=== PATIENT | male | born 1950 | race Hispanic/Latino ===

== ENCOUNTER 2019-12-24 06:30 | Day surgery (SDC) | payer OTHER ==
[2019-12-19 16:28] LABS: BASOPHILS % (AUTO) 0.4 % (0.0-5.0); EOSINOPHILS % (AUTO) 1.4 % (0.0-8.0); LYMPHOCYTES % (AUTO) 27.5 % (21.0-51.0); MEAN CORPUSCULAR HEMOGLOBIN 28.7 pg (27.0-33.0); MEAN CORPUSCULAR HGB CONC 33.1 g/dL (32.0-36.0); MEAN CORPUSCULAR VOLUME 86.7 fL (79-99); MONOCYTES % (AUTO) 10.8 % (3.0-13.0); NEUTROPHILS % (AUTO) 59.3 % (40.0-77.0); PLATELET COUNT (AUTO) 263 K/uL (130-400); RED CELL DISTRIBUTION WIDTH 13.2 % (11.0-15.5); WHITE BLOOD COUNT (AUTO) 10.4 K/uL (4.8-10.8)
[2019-12-19 16:38] LABS: CREATININE 1.5 mg/dL (0.5-1.5); POTASSIUM 4.1 mmol/L (3.5-5.1)
[2019-12-23 11:56] VITALS: BP 138/103
[2019-12-24] VITALS (14 sets, daily range): BP systolic 111–145; BP diastolic 54–79
[~2019-12-24] VITALS: Ht 175.3 cm; Wt 118.8 kg
[~2019-12-24 06:30] MED LIST: APIX5TAB PO; DRON400T2 PO; FOLI1TAB85 PO; LEVO75TA10 PO; LOVA20TA3 PO; METF750T46 PO; METO25TA6 PO; PANT40GR PO
[2019-12-24] MEDS ORDERED: SODIUM CHLORIDE 0.9% 1000ML 1,000 ML IV ONE (07:20)
[2019-12-24] MEDS ORDERED: LIDOCAINE PF 2% 5ML ABBOJECT ONE (10:12)
[2019-12-24] MEDS ORDERED: PROPOFOL 10 MG/ML 20ML VIAL IV ONE (10:12)
== END 2019-12-24 11:35 | disposition home or self-care (01) ==
LOC: DAH 06:30
PROVIDERS: ATTEND Internal Medicine Cardiovascular Disease
DX: I48.19 Other persistent atrial fibrillation (principal); E78.5 Hyperlipidemia, unspecified; E11.22 Type 2 diabetes mellitus with diabetic chronic kidney disease; I12.9 Hypertensive chronic kidney disease with stage 1 through stage 4 chronic kidney disease, or unspecified chronic kidney disease; N18.30 Chronic kidney disease, stage 3 unspecified; G47.30 Sleep apnea, unspecified; Z79.84 Long term (current) use of oral hypoglycemic drugs; Z79.01 Long term (current) use of anticoagulants; Z79.899 Other long term (current) drug therapy; Z20.828 Contact with and (suspected) exposure to other viral communicable diseases
CPT/HCPCS: 36415; 80048; 82948; 85025; 92960; 93005 ×2; A4215; A4216; A4221; A4222; A4223 ×3; A4606; A4663; C9803; J2001; J2704; J7030; U0003

== ENCOUNTER 2020-02-23 10:57 | Emergency (ER) | payer OTHER ==
[2020-02-23 11:55] LABS: APPEARANCE,URINE Clear (CLEAR); BILIRUBIN,URINE Negative (NEGATIVE); COLOR,URINE Yellow (YELLOW); GLUCOSE, URINE (UA) Negative (NEGATIVE); KETONES,URINE Trace mg/dL (NEGATIVE); LEUKOCYTE ESTERASE ,URINE Small (NEGATIVE); NITRATE,URINE Negative (NEGATIVE); OCCULT BLOOD,URINE Negative (NEGATIVE); PROTEIN,URINE Trace mg/dL (NEGATIVE)
[2020-02-23 12:14] LABS: BACTERIA,URINE Rare /HPF (None Seen); RBC,URINE 0-1 /HPF (0-1); SQUAMOUS EPITHELIAL CELL,UR Rare /HPF (0-2); WBC,URINE 0-1 /HPF (0-1)
[2020-02-23 12:17] LABS: BASOPHILS % (AUTO) 0.4 % (0.0-5.0); EOSINOPHILS % (AUTO) 1.7 % (0.0-8.0); LYMPHOCYTES % (AUTO) 28.7 % (21.0-51.0); MEAN CORPUSCULAR HEMOGLOBIN 29.1 pg (27.0-33.0); MEAN CORPUSCULAR HGB CONC 33.9 g/dL (32.0-36.0); MEAN CORPUSCULAR VOLUME 85.8 fL (79-99); MONOCYTES % (AUTO) 9.4 % (3.0-13.0); NEUTROPHILS % (AUTO) 59.4 % (40.0-77.0); PLATELET COUNT (AUTO) 221 K/uL (130-400); RED BLOOD CELL COUNT(AUTO) 4.78 MIL/uL (4.50-6.20); RED CELL DISTRIBUTION WIDTH 13.2 % (11.0-15.5); WHITE BLOOD COUNT (AUTO) 9.7 K/uL (4.8-10.8)
[2020-02-23 12:23] LABS: CREATININE 1.3 mg/dL (0.5-1.5); POTASSIUM 4.4 mmol/L (3.5-5.1)
[2020-02-23 12:27] LABS: ALBUMIN 3.8 g/dL (3.5-5.0); BILIRUBIN,TOTAL 0.4 mg/dL (0.2-1.0); TOTAL PROTEIN, SERUM 7.2 g/dL (6.0-8.3)
[2020-02-23] MEDS ORDERED: IOHEXOL-350 75 ML VIAL IV ONE (12:46)
== END 2020-02-23 15:41 | disposition home or self-care (01) ==
LOC: EDH 10:57
DX: R35.0 Frequency of micturition (principal); R39.15 Urgency of urination; K21.9 Gastro-esophageal reflux disease without esophagitis; E11.9 Type 2 diabetes mellitus without complications; E03.9 Hypothyroidism, unspecified
CPT/HCPCS: 36415; 74177; 80053; 81001; 85025; 99285; Q9967

== ENCOUNTER 2020-02-28 11:06 | Observation (INO) | payer OTHER ==
[~2020-02-28] VITALS: Ht 175.3 cm; Wt 116.8 kg
[2020-02-28] VITALS (21 sets, daily range): BP systolic 122–170; BP diastolic 56–89
[~2020-02-28 11:06] MED LIST changes: -DRON400T2 PO; +DRON400T7 PO
[2020-02-28 13:18] LABS: BASOPHILS % (AUTO) 0.3 % (0.0-5.0); EOSINOPHILS % (AUTO) 0.3 % (0.0-8.0); LYMPHOCYTES % (AUTO) 23.6 % (21.0-51.0); MEAN CORPUSCULAR HEMOGLOBIN 28.5 pg (27.0-33.0); MEAN CORPUSCULAR HGB CONC 33.8 g/dL (32.0-36.0); MEAN CORPUSCULAR VOLUME 84.2 fL (79-99); MONOCYTES % (AUTO) 10.3 % (3.0-13.0); NEUTROPHILS % (AUTO) 65.1 % (40.0-77.0); PLATELET COUNT (AUTO) 226 K/uL (130-400); RED BLOOD CELL COUNT(AUTO) 4.63 MIL/uL (4.50-6.20); RED CELL DISTRIBUTION WIDTH 13.2 % (11.0-15.5); WHITE BLOOD COUNT (AUTO) 10.8 K/uL (4.8-10.8)
[2020-02-28 13:45] LABS: CREATININE 1.2 mg/dL (0.5-1.5); POTASSIUM 3.8 mmol/L (3.5-5.1)
[2020-02-28] MEDS: CEFAZOLIN SODIUM 1 GM VIAL IVP SCH (15:15)
[2020-02-28] MEDS ORDERED: MEPERIDINE HCL/PF 25 MG/0.5 ML AMPUL IVP ONE (15:15)
[2020-02-28] MEDS ORDERED: ACETAMINOPHEN 325 MG TAB PO PRN (15:15)
[2020-02-28] MEDS ORDERED: GLUCAGON 1MG KIT 1 MG ML IM PRN (15:15)
[2020-02-28] MEDS ORDERED: DEXTROSE 50%-WATER 50 ML DISP.SYRIN IV PRN (15:15)
[2020-02-28] MEDS ORDERED: HYDRALAZINE 20MG/ML VIAL IV PRN (15:15)
[2020-02-28] MEDS ORDERED: ONDANSETRON 4MG INJ IVP PRN (15:15)
[2020-02-28] MEDS ORDERED: MAGNESIUM 2GM PREMIX 50ML 50 ML IV PRN (15:15)
[2020-02-28] MEDS ORDERED: LOPERAMIDE HCL 2 MG CAP PO PRN (15:15)
[2020-02-28] MEDS ORDERED: IOHEXOL 350 MG/ML 100ML INFUS..BTL IV ONE (15:51)
[2020-02-28] MEDS: INSULIN HUMULIN R 100 UNIT/ML 3ML SQ SCH ×2 (16:30→21:00)
[2020-02-28] MEDS ORDERED: LIDOCAINE PF 100MG/5ML (2%) SYRINGE 5ML ONE (17:51)
[2020-02-28] MEDS ORDERED: PROPOFOL 10 MG/ML 20ML VIAL IV ONE ×2 (17:52→18:36)
[2020-02-28] MEDS ORDERED: ROCURONIUM 10MG/1ML SYR 10 MG/ML ML ONE (17:52)
[2020-02-28] MEDS ORDERED: FENTANYL CITRATE PF 50 MCG/1 ML 2ML VIAL ONE ×2 (17:52→18:36)
[2020-02-28] MEDS ORDERED: IOHEXOL-350 50ML VIAL IV ONE (18:24)
[2020-02-28] MEDS ORDERED: NEOSTIGMINE 5MG/5ML SYR IV ONE (19:36)
[2020-02-28] MEDS ORDERED: ONDANSETRON 4MG INJ ONE (19:36)
[2020-02-28] MEDS ORDERED: GLYCOPYRROLATE 1 MG/5 ML SYRINGE ONE (19:36)
[2020-02-28] MEDS ORDERED: MEPERIDINE-PF 25 MG/ML SYG ONE (20:08)
[2020-02-28] MEDS ORDERED: ATORVASTATIN 10 MG TABLET PO SCH (21:00)
[2020-02-28] MEDS: HEPARIN 5,000 UNIT VIAL SQ SCH (21:00)
[2020-02-28] MEDS: DRONEDARONE HYDROCHLORIDE 400 MG TABLET PO SCH (21:00)
[2020-02-28] MEDS ORDERED: APIXABAN 5 MG TABLET PO SCH ×2 (21:00)
[2020-02-28] MEDS: METOPROLOL TARTRATE 25 MG TAB PO SCH (21:00)
[2020-02-29] VITALS (7 sets, daily range): BP systolic 128–146; BP diastolic 60–73
[2020-02-29] MEDS: 0.9%NACL 1000ML 1,000 ML IV SCH ×3 (00:24→17:24)
[2020-02-29] MEDS: HYDROMORPHONE 0.5 MG SYG (0.5MG/0.5ML) IVP PRN ×2 (00:24→05:52)
[2020-02-29] MEDS: INSULIN HUMULIN R 100 UNIT/ML 3ML SQ SCH ×3 (05:39→16:30)
[2020-02-29 05:49] LABS: BASOPHILS % (AUTO) 0.3 % (0.0-5.0); EOSINOPHILS % (AUTO) 0.4 % (0.0-8.0); LYMPHOCYTES % (AUTO) 16.7 % (21.0-51.0); MEAN CORPUSCULAR VOLUME 85.4 fL (79-99); MONOCYTES % (AUTO) 13.2 % (3.0-13.0); NEUTROPHILS % (AUTO) 69.1 % (40.0-77.0); PLATELET COUNT (AUTO) 184 K/uL (130-400); RED CELL DISTRIBUTION WIDTH 13.4 % (11.0-15.5)
[2020-02-29 06:12] LABS: CREATININE 1.2 mg/dL (0.5-1.5); POTASSIUM 4.2 mmol/L (3.5-5.1)
[2020-02-29] MEDS ORDERED: LEVOTHYROXINE 75 MCG TABLET PO SCH (06:30)
[2020-02-29] MEDS: HEPARIN 5,000 UNIT VIAL SQ SCH (08:54)
[2020-02-29] MEDS: DRONEDARONE HYDROCHLORIDE 400 MG TABLET PO SCH (09:00)
[2020-02-29] MEDS ORDERED: TAMSULOSIN HCL 0.4 MG CAP.ER.24H PO SCH (09:00)
[2020-02-29] MEDS ORDERED: Vitamin B Complex/Vit C/Folic Acid PO SCH (09:00)
[2020-02-29] MEDS ORDERED: PANTOPRAZOLE 40 MG TAB DR PO SCH (09:00)
[2020-02-29] MEDS: METOPROLOL TARTRATE 25 MG TAB PO SCH (09:05)
[2020-02-29] MEDS: CEFAZOLIN SODIUM 1 GM VIAL IVP SCH (09:05)
[2020-05-06] MEDS ORDERED: OXYB5TAB15 PO (09:47)
[2020-05-06] MEDS ORDERED: PANT40TA54 PO (09:47)
[2020-07-08] MEDS ORDERED: BACL20TA PO (13:38)
== END 2020-02-29 17:15 | disposition home or self-care (01) ==
LOC: EDH 11:06 → EDHIP 13:29 → 3BH 16:43
PROVIDERS: ADMIT Internal Medicine; ATTEND Internal Medicine
DX: N35.819 Other urethral stricture, male, unspecified site (principal); R33.8 Other retention of urine; N13.9 Obstructive and reflux uropathy, unspecified; I48.91 Unspecified atrial fibrillation; E66.2 Morbid (severe) obesity with alveolar hypoventilation; I25.10 Atherosclerotic heart disease of native coronary artery without angina pectoris; E11.9 Type 2 diabetes mellitus without complications; K21.9 Gastro-esophageal reflux disease without esophagitis; E78.5 Hyperlipidemia, unspecified; E03.9 Hypothyroidism, unspecified; M48.00 Spinal stenosis, site unspecified; Z85.46 Personal history of malignant neoplasm of prostate; Z90.49 Acquired absence of other specified parts of digestive tract; Z95.1 Presence of aortocoronary bypass graft; Z90.79 Acquired absence of other genital organ(s); Z79.01 Long term (current) use of anticoagulants; Z79.899 Other long term (current) drug therapy; Z68.41 Body mass index [BMI] 40.0-44.9, adult
CPT/HCPCS: 36415 ×2; 52281; 74178; 74450; 80048 ×2; 82948 ×3; 83605; 85025 ×2; 96361; 96374; 96375; 96376; 99285; A4222; A4223; A4354; A4358; A4600; A4649; A4930; A5113; C1726 ×4; C1751; C1758 ×3; C1769 ×3; G0378 ×28; J0690; J1170 ×2; J2001; J2175 ×2; J2405; J2704 ×2; J2710; J3010 ×2; J3490; J7030; Q9958; Q9967

== ENCOUNTER 2020-04-08 09:31 | Emergency (ER) | payer MEDICARE, OTHER ==
[~2020-04-08 09:31] MED LIST changes: +DRON400T2 PO; -DRON400T7 PO
[2020-04-08 09:51] LABS: BASOPHILS % (AUTO) 0.4 % (0.0-5.0); EOSINOPHILS % (AUTO) 1.4 % (0.0-8.0); HEMATOCRIT 42.9 % (42-54); LYMPHOCYTES % (AUTO) 29.5 % (21.0-51.0); MEAN CORPUSCULAR HEMOGLOBIN 28.9 pg (27.0-33.0); NEUTROPHILS % (AUTO) 61.4 % (40.0-77.0); PLATELET COUNT (AUTO) 220 K/uL (130-400); RED BLOOD CELL COUNT(AUTO) 5.05 MIL/uL (4.50-6.20); RED CELL DISTRIBUTION WIDTH 13.3 % (11.0-15.5); WHITE BLOOD COUNT (AUTO) 10.1 K/uL (4.8-10.8)
[2020-04-08 10:00] LABS: CREATININE 1.3 mg/dL (0.5-1.5); POTASSIUM 4.1 mmol/L (3.5-5.1)
[2020-04-08 10:04] LABS: ALBUMIN 4.2 g/dL (3.5-5.0); BILIRUBIN,TOTAL 0.7 mg/dL (0.2-1.0); TOTAL PROTEIN, SERUM 7.7 g/dL (6.0-8.3)
[2020-04-08 10:41] LABS: APPEARANCE,URINE CLEAR (CLEAR); BILIRUBIN,URINE NEGATIVE (NEGATIVE); COLOR,URINE ORANGE (YELLOW); GLUCOSE, URINE (UA) 100 mg/dL (NEGATIVE); KETONES,URINE NEGATIVE (NEGATIVE); LEUKOCYTE ESTERASE ,URINE TRACE (NEGATIVE); NITRATE,URINE POSITIVE (NEGATIVE); OCCULT BLOOD,URINE NEGATIVE (NEGATIVE); PROTEIN,URINE TRACE mg/dL (NEGATIVE)
[2020-04-08 10:52] LABS: BACTERIA,URINE Rare /HPF (None Seen); RBC,URINE 0-1 /HPF (0-1); SQUAMOUS EPITHELIAL CELL,UR 0-2 /HPF (0-2)
[2020-04-08] MEDS ORDERED: LEVOFLOXACIN 500 MG TABLET PO ONE (13:00)
[2020-04-08] MEDS ORDERED: LEVOFLOXACIN 500 MG TABLET ONE (13:00)
== END 2020-04-08 14:28 | disposition home or self-care (01) ==
LOC: EDH 09:31
DX: N39.0 Urinary tract infection, site not specified (principal); K21.9 Gastro-esophageal reflux disease without esophagitis; E11.9 Type 2 diabetes mellitus without complications; E03.9 Hypothyroidism, unspecified
CPT/HCPCS: 36415; 74176; 80053; 81001; 85025; 87088

== ENCOUNTER 2020-04-09 21:03 | Emergency (ER) | payer MEDICARE ==
[2020-04-09 22:46] LABS: APPEARANCE,URINE Clear (CLEAR); BILIRUBIN,URINE Small (NEGATIVE); COLOR,URINE Dark Yellow (YELLOW); GLUCOSE, URINE (UA) Negative (NEGATIVE); KETONES,URINE Negative (NEGATIVE); LEUKOCYTE ESTERASE ,URINE Small (NEGATIVE); NITRATE,URINE Positive (NEGATIVE); OCCULT BLOOD,URINE Large (NEGATIVE); PH,URINE 6.5 (5.0-8.0); PROTEIN,URINE Trace mg/dL (NEGATIVE)
[2020-04-09 23:05] LABS: BACTERIA,URINE Few /HPF (None Seen)
[2020-04-09] MEDS ORDERED: PHENAZOPYRIDINE HCL 200 MG TABLET ONE (23:17)
== END 2020-04-09 23:36 | disposition home or self-care (01) ==
LOC: EDH 21:03
DX: R33.9 Retention of urine, unspecified (principal); N30.90 Cystitis, unspecified without hematuria; K21.9 Gastro-esophageal reflux disease without esophagitis; E11.9 Type 2 diabetes mellitus without complications; E03.9 Hypothyroidism, unspecified
CPT/HCPCS: 51702; 81001; 87088; 96365

== ENCOUNTER 2020-04-23 19:37 | Observation (INO) | payer MEDICARE ==
[~2020-04-23] VITALS: Ht 175.3 cm; Wt 111.3 kg
[~2020-04-23 19:37] MED LIST changes: -DRON400T2 PO; +DRON400T7 PO
[2020-04-23] MEDS ORDERED: ONDANSETRON 4MG INJ ONE (20:31)
[2020-04-23] MEDS ORDERED: MORPHINE 2 MG SYG ONE (20:32)
[2020-04-23 20:36] LABS: BASOPHILS % (AUTO) 0.3 % (0.0-5.0); EOSINOPHILS % (AUTO) 0.4 % (0.0-8.0); HEMATOCRIT 39.4 % (42-54); LYMPHOCYTES % (AUTO) 21.7 % (21.0-51.0); MEAN CORPUSCULAR HEMOGLOBIN 28.6 pg (27.0-33.0); MEAN CORPUSCULAR HGB CONC 33.5 g/dL (32.0-36.0); MEAN CORPUSCULAR VOLUME 85.5 fL (79-99); MONOCYTES % (AUTO) 8.9 % (3.0-13.0); NEUTROPHILS % (AUTO) 68.4 % (40.0-77.0); PLATELET COUNT (AUTO) 201 K/uL (130-400); RED BLOOD CELL COUNT(AUTO) 4.61 MIL/uL (4.50-6.20); RED CELL DISTRIBUTION WIDTH 13.2 % (11.0-15.5); WHITE BLOOD COUNT (AUTO) 10.9 K/uL (4.8-10.8)
[2020-04-23 20:51] LABS: CREATININE 1.2 mg/dL (0.5-1.5)
[2020-04-23 20:54] LABS: ALBUMIN 3.9 g/dL (3.5-5.0); BILIRUBIN,TOTAL 0.7 mg/dL (0.2-1.0); TOTAL PROTEIN, SERUM 7.3 g/dL (6.0-8.3)
[2020-04-23 20:59] LABS: INR 1.03 (0.85-1.15); PROTHROMBIN TIME 11.2 SEC (9.6-11.6)
[2020-04-23 21:01] LABS: PARTIAL THROMBOPLASTIN TIME 28.8 SEC (26.3-35.5)
[2020-04-23] MEDS ORDERED: ONDANSETRON 4MG INJ IVP PRN (21:15)
[2020-04-23] MEDS ORDERED: ACETAMINOPHEN 650 MG SUPPOSITORY RC PRN (21:15)
[2020-04-23] MEDS ORDERED: CLONIDINE HCL 0.1 MG TABLET PO PRN (21:15)
[2020-04-23] MEDS ORDERED: TEMAZEPAM 15 MG CAPSULE PO PRN (21:15)
[2020-04-23] MEDS ORDERED: LABETALOL 20MG SYG IV PRN (21:15)
[2020-04-23] MEDS ORDERED: HYDROMORPHONE 0.5 MG SYG (0.5MG/0.5ML) ONE (22:00)
[2020-04-24] VITALS (28 sets, daily range): BP systolic 117–155; BP diastolic 51–82
[2020-04-24] MEDS: MORPHINE 4 MG SYG IVP PRN ×5 (01:15→20:42)
[2020-04-24 06:43] LABS: CREATININE 1.3 mg/dL (0.5-1.5); POTASSIUM 4.2 mmol/L (3.5-5.1)
[2020-04-24] MEDS ORDERED: FENTANYL CITRATE PF 50 MCG/1 ML 2ML VIAL ONE (07:14)
[2020-04-24] MEDS ORDERED: PROPOFOL 10 MG/ML 20ML VIAL IV ONE (07:14)
[2020-04-24] MEDS ORDERED: LIDOCAINE HCL MPF 1% 5ML VIAL ONE (07:14)
[2020-04-24] MEDS ORDERED: MIDAZOLAM HCL 1 MG/ML 2ML VIAL ONE (07:14)
[2020-04-24] MEDS ORDERED: SUCCINYLCHOLINE 200MG/10ML SYR ONE (07:14)
[2020-04-24] MEDS: CEFTRIAXONE 1G VIAL IVP SCH (07:19)
[2020-04-24] MEDS ORDERED: GLYCOPYRROLATE 1 MG/5 ML SYRINGE ONE (08:33)
[2020-04-24] MEDS ORDERED: NEOSTIGMINE 5MG/5ML SYR IV ONE (08:33)
[2020-04-24] MEDS ORDERED: MEPERIDINE-PF 25 MG/ML SYG ONE (09:13)
[2020-04-25] VITALS: BP 137/62
[2020-04-25] MEDS: MORPHINE 4 MG SYG IVP PRN (02:14)
[2020-04-25 04:11] VITALS: BP 121/56
[2020-04-25] MEDS: CEFTRIAXONE 1G VIAL IVP SCH (05:06)
[2020-04-25 05:48] LABS: CREATININE 1.3 mg/dL (0.5-1.5); MAGNESIUM 1.9 mg/dL (1.80-2.40); POTASSIUM 3.9 mmol/L (3.5-5.1)
[2020-04-25 05:52] LABS: MEAN CORPUSCULAR HGB CONC 32.6 g/dL (32.0-36.0); MEAN CORPUSCULAR VOLUME 88.8 fL (79-99); RED BLOOD CELL COUNT(AUTO) 3.83 MIL/uL (4.50-6.20); RED CELL DISTRIBUTION WIDTH 14.2 % (11.0-15.5); WHITE BLOOD COUNT (AUTO) 12.2 K/uL (4.8-10.8)
[2020-04-25 07:00] VITALS: BP 120/58
[2020-04-25] MEDS ORDERED: ATORVASTATIN 10 MG TABLET PO SCH (09:00)
[2020-04-25] MEDS ORDERED: METOPROLOL TARTRATE 25 MG TAB PO SCH (09:00)
[2020-04-25 11:27] LABS: APPEARANCE,URINE Cloudy (CLEAR); BILIRUBIN,URINE Small (NEGATIVE); COLOR,URINE Dark Yellow (YELLOW); GLUCOSE, URINE (UA) Negative (NEGATIVE); KETONES,URINE Trace mg/dL (NEGATIVE); LEUKOCYTE ESTERASE ,URINE Moderate (NEGATIVE); NITRATE,URINE Positive (NEGATIVE); OCCULT BLOOD,URINE Large (NEGATIVE); PH,URINE 5.5 (5.0-8.0); PROTEIN,URINE POS 1+ mg/dL (NEGATIVE)
[2020-04-25 11:30] VITALS: BP 147/69
[2020-04-25 11:35] LABS: BACTERIA,URINE Moderate /HPF (None Seen); SQUAMOUS EPITHELIAL CELL,UR 0-2 /HPF (0-2)
[2020-04-25 11:36] LABS: RBC,URINE >100 /HPF (0-1); WBC,URINE >100 /HPF (0-1)
[2020-04-25] MEDS ORDERED: LACTULOSE 20 GM/30 ML UDCUP PO SCH (12:30)
[2020-04-25] MEDS ORDERED: BISACODYL 10 MG SUPP.RECT RC SCH (12:30)
[2020-04-25] MEDS ORDERED: PHEN-847 PO (12:35)
[2020-04-25] MEDS ORDERED: LACT10SO9 PO (12:35)
[2020-04-25] MEDS ORDERED: ACET1TAB25 PO (12:35)
[2020-04-25] MEDS ORDERED: PHENAZOPYRIDINE HCL 200 MG TABLET PO SCH (12:45)
[2020-04-25 16:00] VITALS: BP 140/70
[2020-04-25] MEDS ORDERED: DRONEDARONE HYDROCHLORIDE 400 MG TABLET PO SCH (17:00)
[2020-04-26] MEDS ORDERED: LEVOTHYROXINE 75 MCG TABLET PO SCH (07:00)
[2020-05-06] MEDS ORDERED: OXYB5TAB15 PO (09:47)
[2020-05-06] MEDS ORDERED: PANT40TA54 PO (09:47)
[2020-07-08] MEDS ORDERED: BACL20TA PO (13:38)
== END 2020-04-25 17:48 | disposition home or self-care (01) ==
LOC: EDH 19:37 → EDHIP 21:09 → 3CH 23:48 → 3DH 23:59
PROVIDERS: ADMIT Internal Medicine; ATTEND Internal Medicine
DX: N32.0 Bladder-neck obstruction (principal); Z20.822 Contact with and (suspected) exposure to COVID-19; R33.8 Other retention of urine; E11.9 Type 2 diabetes mellitus without complications; I10 Essential (primary) hypertension; E78.5 Hyperlipidemia, unspecified; E03.9 Hypothyroidism, unspecified; E66.9 Obesity, unspecified; K59.00 Constipation, unspecified; N39.0 Urinary tract infection, site not specified; K21.9 Gastro-esophageal reflux disease without esophagitis; Z85.46 Personal history of malignant neoplasm of prostate; Z90.79 Acquired absence of other genital organ(s); Z79.899 Other long term (current) drug therapy; Z68.36 Body mass index [BMI] 36.0-36.9, adult
CPT/HCPCS: 36415 ×3; 52265; 74176; 80048 ×2; 80053; 81001; 82948 ×6; 83735; 84484; 85025; 85027; 85610; 85730; 86850; 86900; 86901; 87040 ×2; 87077; 87088; 87186; 87426; 93005; 96374; 96375; 96376 ×2; 99285; A4315; A4340; A4344; A4354; A4358; A4930; A5113; C1769; G0378 ×43; J0330; J0696 ×2; J1170; J2175; J2250; J2270 ×6; J2405; J2704; J2710; J3010; J3490 ×2; J7030; U0003

== ENCOUNTER 2020-05-07 06:35 | Day surgery (SDC) | payer MEDICARE ==
[2020-05-04 11:05] VITALS: BP 146/68
[2020-05-04 11:54] LABS: BASOPHILS % (AUTO) 0.4 % (0.0-5.0); EOSINOPHILS % (AUTO) 2.1 % (0.0-8.0); HEMATOCRIT 38.3 % (42-54); LYMPHOCYTES % (AUTO) 24.8 % (21.0-51.0); MEAN CORPUSCULAR HEMOGLOBIN 28.3 pg (27.0-33.0); MEAN CORPUSCULAR HGB CONC 32.6 g/dL (32.0-36.0); MEAN CORPUSCULAR VOLUME 86.8 fL (79-99); MONOCYTES % (AUTO) 9.7 % (3.0-13.0); NEUTROPHILS % (AUTO) 62.4 % (40.0-77.0); PLATELET COUNT (AUTO) 276 K/uL (130-400); RED BLOOD CELL COUNT(AUTO) 4.41 MIL/uL (4.50-6.20); RED CELL DISTRIBUTION WIDTH 13.3 % (11.0-15.5); WHITE BLOOD COUNT (AUTO) 7.1 K/uL (4.8-10.8)
[2020-05-04 12:06] LABS: CREATININE 1.1 mg/dL (0.5-1.5); POTASSIUM 4.3 mmol/L (3.5-5.1)
[2020-05-07] VITALS (18 sets, daily range): BP systolic 127–170; BP diastolic 58–85
[~2020-05-07] VITALS: Ht 175.3 cm; Wt 110.9 kg
[2020-05-07] MEDS: MEROPENEM 500 MG VIAL IVP SCH ×2 (06:00→08:30)
[~2020-05-07 06:35] MED LIST changes: +DRON400T2 PO; -DRON400T7 PO; -FOLI1TAB85 PO; +OXYB5TAB15 PO; -PANT40GR PO; +PANT40TA54 PO
[2020-05-07] MEDS ORDERED: SODIUM CHLORIDE 0.9% 1000ML 1,000 ML IV ONE (07:08)
[2020-05-07] MEDS ORDERED: PROPOFOL 10 MG/ML 20ML VIAL IV ONE (07:44)
[2020-05-07] MEDS ORDERED: LIDOCAINE PF 2% 5ML ABBOJECT ONE (07:44)
[2020-05-07] MEDS ORDERED: ONDANSETRON HCL 4 MG/2 ML VIAL ONE (07:44)
[2020-05-07] MEDS ORDERED: SUCCINYLCHOLINE 200MG/10ML SYR ONE ×2 (07:44)
[2020-05-07] MEDS ORDERED: MIDAZOLAM HCL 1 MG/ML 2ML VIAL ONE (07:44)
[2020-05-07] MEDS ORDERED: DEXAMETHASONE SOD PHOSPHATE 10MG/ML 1ML VIAL ONE (07:44)
[2020-05-07] MEDS ORDERED: FENTANYL CITRATE PF 50 MCG/1 ML 2ML VIAL ONE ×3 (07:45→09:44)
[2020-05-07] MEDS ORDERED: MEPERIDINE-PF 25 MG/ML SYG ONE ×4 (07:47→10:27)
[2020-05-07] MEDS ORDERED: ROCURONIUM 10MG/1ML SYR 10 MG/ML ML ONE (08:03)
[2020-05-07] MEDS ORDERED: EPHEDRINE SULFATE 50 MG/ML AMPULE ONE (08:47)
[2020-05-07] MEDS ORDERED: PHENYLEPHRINE HCL 10 MG/ML 1ML VIAL IV ONE (09:16)
[2020-05-07] MEDS ORDERED: PHENAZOPYRIDINE HCL 200 MG TABLET ONE (11:37)
== END 2020-05-07 12:35 | disposition home or self-care (01) ==
LOC: DAH 06:35
PROVIDERS: ATTEND Urology
DX: N32.0 Bladder-neck obstruction (principal); Z20.822 Contact with and (suspected) exposure to COVID-19; C61 Malignant neoplasm of prostate; R33.8 Other retention of urine; I10 Essential (primary) hypertension; I25.10 Atherosclerotic heart disease of native coronary artery without angina pectoris; I48.91 Unspecified atrial fibrillation; K21.9 Gastro-esophageal reflux disease without esophagitis; E66.01 Morbid (severe) obesity due to excess calories; E03.9 Hypothyroidism, unspecified; E11.9 Type 2 diabetes mellitus without complications; Z68.36 Body mass index [BMI] 36.0-36.9, adult; Z90.79 Acquired absence of other genital organ(s); Z98.890 Other specified postprocedural states; Z79.01 Long term (current) use of anticoagulants; Z79.84 Long term (current) use of oral hypoglycemic drugs
CPT/HCPCS: 36415; 52640; 80048; 82948 ×2; 85025; A4215; A4221; A4222; A4223; A4354; A4358; A4510; A4600; A4663; A5113; A6260; C1758; C1769; C9803; J0330 ×2; J1100; J2001; J2175 ×4; J2185 ×2; J2250; J2370; J2405; J2704; J3010 ×3; J3490; J7030 ×2; U0003

== ENCOUNTER 2020-06-27 03:37 | Emergency (ER) | payer MEDICARE ==
[~2020-06-27 03:37] MED LIST changes: -DRON400T2 PO; +DRON400T7 PO
[2020-06-27] MEDS ORDERED: SODIUM CHLORIDE 0.9% 1000ML 1,000 ML IV ONE (04:21)
[2020-06-27 04:43] LABS: BASOPHILS % (AUTO) 0.5 % (0.0-5.0); HEMATOCRIT 40.2 % (42-54); LYMPHOCYTES % (AUTO) 27.8 % (21.0-51.0); MEAN CORPUSCULAR HEMOGLOBIN 29.5 pg (27.0-33.0); MEAN CORPUSCULAR HGB CONC 35.1 g/dL (32.0-36.0); MEAN CORPUSCULAR VOLUME 84.1 fL (79-99); MONOCYTES % (AUTO) 10.9 % (3.0-13.0); NEUTROPHILS % (AUTO) 59.4 % (40.0-77.0); PLATELET COUNT (AUTO) 187 K/uL (130-400); RED BLOOD CELL COUNT(AUTO) 4.78 MIL/uL (4.50-6.20); RED CELL DISTRIBUTION WIDTH 13.1 % (11.0-15.5); WHITE BLOOD COUNT (AUTO) 9.9 K/uL (4.8-10.8)
[2020-06-27 04:44] LABS: APPEARANCE,URINE Clear (CLEAR); BILIRUBIN,URINE Negative (NEGATIVE); COLOR,URINE Yellow (YELLOW); GLUCOSE, URINE (UA) Negative (NEGATIVE); KETONES,URINE Trace mg/dL (NEGATIVE); LEUKOCYTE ESTERASE ,URINE Small (NEGATIVE); NITRATE,URINE Negative (NEGATIVE); OCCULT BLOOD,URINE Nonhemolyzed Trace (NEGATIVE); PROTEIN,URINE Negative (NEGATIVE)
[2020-06-27 04:53] LABS: BACTERIA,URINE Few /HPF (None Seen); RBC,URINE 0-1 /HPF (0-1)
[2020-06-27 04:58] LABS: CREATININE 1.1 mg/dL (0.5-1.5); POTASSIUM 3.8 mmol/L (3.5-5.1)
[2020-06-27 05:02] LABS: ALBUMIN 3.6 g/dL (3.5-5.0); BILIRUBIN,TOTAL 0.5 mg/dL (0.2-1.0); TOTAL PROTEIN, SERUM 6.8 g/dL (6.0-8.3)
[2020-06-27 05:25] LABS: INR 1.01 (0.85-1.15)
[2020-06-27 05:26] LABS: PARTIAL THROMBOPLASTIN TIME 27.1 SEC (26.3-35.5)
== END 2020-06-27 07:01 | disposition home or self-care (01) ==
LOC: EDH 03:37
DX: K59.00 Constipation, unspecified (principal); E86.9 Volume depletion, unspecified; E11.9 Type 2 diabetes mellitus without complications; E03.9 Hypothyroidism, unspecified; Z85.46 Personal history of malignant neoplasm of prostate; Z98.890 Other specified postprocedural states
CPT/HCPCS: 36415; 74177; 80053; 81001; 83605; 83690; 85025; 85610; 85730; 96360; 99285; J7030

== ENCOUNTER 2020-07-02 20:51 | Emergency (ER) | payer MEDICARE ==
[2020-07-02] MEDS ORDERED: LIDOCAINE HCL 2% JELLY 5 ML ONE (21:00)
[2020-07-02 23:15] LABS: APPEARANCE,URINE Clear (CLEAR); BILIRUBIN,URINE Negative (NEGATIVE); COLOR,URINE Yellow (YELLOW); GLUCOSE, URINE (UA) Negative (NEGATIVE); KETONES,URINE Negative (NEGATIVE); LEUKOCYTE ESTERASE ,URINE Trace (NEGATIVE); NITRATE,URINE Negative (NEGATIVE); OCCULT BLOOD,URINE Moderate (NEGATIVE); PROTEIN,URINE Negative (NEGATIVE); UROBILINOGEN,URINE 0.2 mg/dL (0.2-1.0)
[2020-07-02 23:24] LABS: BACTERIA,URINE None Seen /HPF (None Seen); SQUAMOUS EPITHELIAL CELL,UR Rare /HPF (0-2); WBC,URINE 0-1 /HPF (0-1)
[2020-07-03 00:06] LABS: BASOPHILS % (AUTO) 0.5 % (0.0-5.0); EOSINOPHILS % (AUTO) 0.5 % (0.0-8.0); HEMATOCRIT 38.6 % (42-54); LYMPHOCYTES % (AUTO) 27.8 % (21.0-51.0); MEAN CORPUSCULAR HEMOGLOBIN 28.8 pg (27.0-33.0); MEAN CORPUSCULAR HGB CONC 33.7 g/dL (32.0-36.0); MEAN CORPUSCULAR VOLUME 85.6 fL (79-99); MONOCYTES % (AUTO) 10.9 % (3.0-13.0); PLATELET COUNT (AUTO) 177 K/uL (130-400); RED BLOOD CELL COUNT(AUTO) 4.51 MIL/uL (4.50-6.20); RED CELL DISTRIBUTION WIDTH 13.1 % (11.0-15.5); WHITE BLOOD COUNT (AUTO) 9.6 K/uL (4.8-10.8)
[2020-07-03 00:15] LABS: CARBON DIOXIDE 22 mmol/L (21-32); CHLORIDE 104 mmol/L (101-111); CREATININE 1.1 mg/dL (0.5-1.5); GLOMERULAR FILTR. RATE CALC 70 mL/min (>60); GLUCOSE,RANDOM 102 mg/dL (70-105); SODIUM SERUM 137 mmol/L (136-145); UREA NITROGEN, BLOOD 19 mg/dL (7-18)
[2020-07-03 00:19] LABS: ALANINE AMINOTRANSFERASE 74 U/L (12-78); ALBUMIN 3.6 g/dL (3.5-5.0); ASPARTATE AMINOTRANSFERASE 30 U/L (10-37); BILIRUBIN,TOTAL 0.5 mg/dL (0.2-1.0); TOTAL PROTEIN, SERUM 6.7 g/dL (6.0-8.3)
[2020-07-03 00:26] LABS: CRP QUANTITATIVE < 2.00 mg/L (0.00-9.0)
== END 2020-07-03 03:03 | disposition home or self-care (01) ==
LOC: EDH 20:51
DX: N48.1 Balanitis (principal); R39.81 Functional urinary incontinence; E83.41 Hypermagnesemia; E11.9 Type 2 diabetes mellitus without complications; K21.9 Gastro-esophageal reflux disease without esophagitis; E03.9 Hypothyroidism, unspecified; I10 Essential (primary) hypertension
CPT/HCPCS: 36415; 80053; 81001; 83735; 85025; 86140

== ENCOUNTER 2020-07-09 09:26 | Day surgery (SDC) | payer MEDICARE ==
[2020-07-08 12:31] LABS: BASOPHILS % (AUTO) 0.4 % (0.0-5.0); EOSINOPHILS % (AUTO) 0.4 % (0.0-8.0); HEMATOCRIT 41.3 % (42-54); LYMPHOCYTES % (AUTO) 27.8 % (21.0-51.0); MEAN CORPUSCULAR HEMOGLOBIN 28.9 pg (27.0-33.0); MEAN CORPUSCULAR HGB CONC 33.4 g/dL (32.0-36.0); MEAN CORPUSCULAR VOLUME 86.6 fL (79-99); MONOCYTES % (AUTO) 10.5 % (3.0-13.0); NEUTROPHILS % (AUTO) 60.7 % (40.0-77.0); PLATELET COUNT (AUTO) 205 K/uL (130-400); RED BLOOD CELL COUNT(AUTO) 4.77 MIL/uL (4.50-6.20); RED CELL DISTRIBUTION WIDTH 13.2 % (11.0-15.5); WHITE BLOOD COUNT (AUTO) 9.5 K/uL (4.8-10.8)
[2020-07-08 12:37] VITALS: BP 128/65
[2020-07-08 12:39] LABS: CREATININE 1.3 mg/dL (0.5-1.5); POTASSIUM 4.2 mmol/L (3.5-5.1)
[~2020-07-09] VITALS: Ht 175.3 cm; Wt 98.5 kg
[2020-07-09] VITALS (16 sets, daily range): BP systolic 110–145; BP diastolic 52–67
[~2020-07-09 09:26] MED LIST changes: +BACL20TA PO; -OXYB5TAB15 PO
[2020-07-09] MEDS ORDERED: SODIUM CHLORIDE 0.9% 1000ML 1,000 ML IV ONE (10:05)
[2020-07-09] MEDS: CEFTRIAXONE SODIUM 1 GM IVP SCH ×2 (10:08→12:15)
[2020-07-09] MEDS ORDERED: PROPOFOL 10 MG/ML 20ML VIAL IV ONE (11:36)
[2020-07-09] MEDS ORDERED: FENTANYL CITRATE PF 50 MCG/1 ML 2ML VIAL ONE (11:36)
[2020-07-09] MEDS ORDERED: DEXAMETHASONE SOD PHOSPHATE 10MG/ML 1ML VIAL ONE (11:36)
[2020-07-09] MEDS ORDERED: GLYCOPYRROLATE 1 MG/5 ML SYRINGE ONE (11:36)
[2020-07-09] MEDS ORDERED: LIDOCAINE PF 2% 5ML ABBOJECT ONE (11:36)
[2020-07-09] MEDS ORDERED: MIDAZOLAM HCL 1 MG/ML 2ML VIAL ONE (11:54)
[2020-07-09] MEDS ORDERED: ROCURONIUM 10MG/1ML SYR 10 MG/ML ML ONE (11:54)
[2020-07-09] MEDS ORDERED: NEOSTIGMINE 5MG/5ML SYR IV ONE ×2 (11:54→12:57)
[2020-07-09] MEDS ORDERED: PHENAZOPYRIDINE HCL 200 MG TABLET ONE (14:30)
== END 2020-07-09 15:09 | disposition home or self-care (01) ==
LOC: DAH 09:26
PROVIDERS: ATTEND Urology
DX: N32.0 Bladder-neck obstruction (principal); R33.9 Retention of urine, unspecified; I48.91 Unspecified atrial fibrillation; I10 Essential (primary) hypertension; K21.9 Gastro-esophageal reflux disease without esophagitis; Z85.46 Personal history of malignant neoplasm of prostate; E66.9 Obesity, unspecified; Z79.01 Long term (current) use of anticoagulants; Z79.84 Long term (current) use of oral hypoglycemic drugs; Z79.899 Other long term (current) drug therapy
CPT/HCPCS: 36415; 52640; 80048; 82948 ×2; 85025; 87426; 93005; A4215; A4221; A4222; A4223; A4344; A4354; A4358; A4510; A4600; A4663; A5113; A6260; J0696; J1100; J2001; J2250; J2704; J2710 ×2; J3010; J3490; J7030 ×2

== ENCOUNTER 2021-02-05 23:18 | Inpatient (IN) | payer MEDICARE ==
[~2021-02-05] VITALS: Ht 172.7 cm; Wt 119.2 kg
[~2021-02-05 23:18] MED LIST changes: -APIX5TAB PO; -BACL20TA PO
[2021-02-06] MEDS ORDERED: DIATR MEGLU/DIATRIZOATE SODIUM 30 ML BOTTLE ONE (00:51)
[2021-02-06] MEDS ORDERED: MORPHINE 2 MG SYG IVP ONE ×2 (01:30→02:00)
[2021-02-06] MEDS ORDERED: ONDANSETRON 4MG INJ IVP ONE (01:30)
[2021-02-06] MEDS ORDERED: TAMSULOSIN HCL 0.4 MG CAP.ER.24H PO STA (02:23)
[2021-02-06] MEDS ORDERED: GLUCAGON 1MG KIT 1 MG ML IM PRN (02:30)
[2021-02-06] MEDS ORDERED: GUAIFENESIN-DM 200/20 MG 10 ML PO PRN (02:30)
[2021-02-06] MEDS ORDERED: DEXTROSE 50%-WATER 50 ML DISP.SYRIN IV PRN (02:30)
[2021-02-06] MEDS ORDERED: NITROGLYCERIN 0.4 MG SL TAB SL PRN (02:30)
[2021-02-06] MEDS ORDERED: MAG/ALUM/SIMETH 30 ML UDCUP PO PRN (02:30)
[2021-02-06] MEDS ORDERED: ONDANSETRON 4MG INJ IV PRN (02:30)
[2021-02-06] MEDS ORDERED: ACETAMINOPHEN 325 MG TAB PO PRN ×2 (02:30)
[2021-02-06] MEDS ORDERED: ZOLPIDEM TARTRATE 5 MG TAB PO PRN (02:30)
[2021-02-06] MEDS ORDERED: LACTULOSE 20 GM/30 ML UDCUP PO PRN (02:30)
[2021-02-06] MEDS ORDERED: LORAZEPAM 2 MG/ML 1 ML VIAL IVP ONE (02:30)
[2021-02-06 03:10] LABS: APPEARANCE,URINE CLEAR (CLEAR); BILIRUBIN,URINE NEGATIVE (NEGATIVE); COLOR,URINE YELLOW (YELLOW); GLUCOSE, URINE (UA) NEGATIVE (NEGATIVE); KETONES,URINE NEGATIVE (NEGATIVE); LEUKOCYTE ESTERASE ,URINE MODERATE (NEGATIVE); NITRATE,URINE NEGATIVE (NEGATIVE); OCCULT BLOOD,URINE MODERATE (NEGATIVE); PH,URINE 8.5 (5.0-8.0); PROTEIN,URINE 100 mg/dL (NEGATIVE)
[2021-02-06 03:17] LABS: CREATININE 2.5 mg/dL (0.5-1.5); POTASSIUM 4.4 mmol/L (3.5-5.1)
[2021-02-06 03:21] LABS: ALBUMIN 3.9 g/dL (3.5-5.0); TOTAL PROTEIN, SERUM 7.6 g/dL (6.0-8.3)
[2021-02-06] MEDS ORDERED: IBUPROFEN 600 MG TABLET ONE (03:22)
[2021-02-06 03:24] LABS: BASOPHILS % (AUTO) 0.8 % (0.0-5.0); HEMATOCRIT 41.6 % (42-54); LYMPHOCYTES % (AUTO) 8.2 % (21.0-51.0); MEAN CORPUSCULAR HEMOGLOBIN 28.9 pg (27.0-33.0); MEAN CORPUSCULAR HGB CONC 34.1 g/dL (32.0-36.0); MEAN CORPUSCULAR VOLUME 84.7 fL (79-99); MONOCYTES % (AUTO) 1.6 % (3.0-13.0); NEUTROPHILS % (AUTO) 85.3 % (40.0-77.0); PLATELET COUNT (AUTO) 153 K/uL (130-400); RED BLOOD CELL COUNT(AUTO) 4.91 MIL/uL (4.50-6.20); RED CELL DISTRIBUTION WIDTH 13.9 % (11.0-15.5); WHITE BLOOD COUNT (AUTO) 1.2 K/uL (4.8-10.8)
[2021-02-06] MEDS ORDERED: IBUPROFEN 800 MG TAB ONE (03:32)
[2021-02-06 04:07] LABS: BACTERIA,URINE Many /HPF (None Seen); SQUAMOUS EPITHELIAL CELL,UR 0-2 /HPF (0-2)
[2021-02-06 04:09] LABS: TRIPLE PHOSPHATE CRYSTAL,UR Moderate /LPF (None Seen)
[2021-02-06] MEDS ORDERED: MIDODRINE HCL 5 MG TABLET ONE (07:07)
[2021-02-06] MEDS ORDERED: MIDODRINE HCL 5 MG TABLET PO SCH (07:30)
[2021-02-06] MEDS: INSULIN HUMULIN R 100 UNIT/ML 3ML SQ SCH ×4 (07:30→21:00)
[2021-02-06] MEDS ORDERED: NOREPINEPHRIN 4MG/NS 250ML 250 ML IV SCH (07:30)
[2021-02-06] MEDS: LEVOFLOXACIN 750 MG/D5W 150 ML 150 ML IV SCH (08:00)
[2021-02-06] MEDS ORDERED: MEROPENEM 1 GM VIAL IVP SCH ×2 (08:30→09:00)
[2021-02-06] MEDS ORDERED: LEVOFLOXACIN 750 MG/D5W 150 ML 150 ML IV ONE (09:00)
[2021-02-06] MEDS ORDERED: FAMOTIDINE 20MG VIAL IV SCH (09:00)
[2021-02-06] MEDS ORDERED: 0.9%NACL 1000ML 2,052 ML IV SCH (09:30)
[2021-02-06 09:36] LABS: ABG BASE EXCESS -5.2 mmol/L (-2.0-3.0); ABG HCO3 18.6 mmol/L (21.0-28.0); ABG PCO2 31 mmHg (35-48)
[2021-02-06] MEDS: 0.9%NACL 1000ML 1,000 ML IV SCH ×2 (10:18→19:00)
[2021-02-06] MEDS ORDERED: SODIUM BICARB 50MEQ 50ML VIAL IV SCH (13:00)
[2021-02-06] MEDS ORDERED: PANTOPRAZOLE 40 MG/VIAL IVP SCH (13:30)
[2021-02-06] MEDS ORDERED: LIDOCAINE HCL 2% PF 20 ML JEL DISP.SYRIN MM ONE (14:06)
[2021-02-06 14:23] LABS: CREATININE 3.3 mg/dL (0.5-1.5); POTASSIUM 3.5 mmol/L (3.5-5.1)
[2021-02-06 14:26] LABS: INR 1.22 (0.85-1.15); PROTHROMBIN TIME 13.1 SEC (9.6-11.6)
[2021-02-06 14:27] LABS: PARTIAL THROMBOPLASTIN TIME 35.6 SEC (26.3-35.5)
[2021-02-06] MEDS ORDERED: DRONEDARONE HYDROCHLORIDE 400 MG TABLET PO SCH (17:00)
[2021-02-06] MEDS: MEROPENEM 500 MG VIAL IVP SCH (22:12)
[2021-02-06] MEDS: LACTATED RINGERS 1000ML 1,000 ML IV SCH (22:12)
[2021-02-06 22:47] LABS: CREATINE KINASE, TOTAL 369 U/L (21-232); MYOGLOBIN 481 ng/mL (10-92)
[2021-02-06 23:27] VITALS: BP 126/55
[2021-02-06 23:45] VITALS: BP 118/57
[2021-02-07] VITALS (58 sets, daily range): BP systolic 65–137; BP diastolic 38–80
[2021-02-07] MEDS ORDERED: NOREPINEPHRINE 8MG/NS 250ML PREMIX IV SCH
[2021-02-07 03:35] LABS: HEMATOCRIT 38.9 % (42-54); MEAN CORPUSCULAR HGB CONC 33.7 g/dL (32.0-36.0); MEAN CORPUSCULAR VOLUME 86.1 fL (79-99); PLATELET COUNT (AUTO) 105 K/uL (130-400); RED BLOOD CELL COUNT(AUTO) 4.52 MIL/uL (4.50-6.20); RED CELL DISTRIBUTION WIDTH 14.9 % (11.0-15.5)
[2021-02-07 03:52] LABS: ALBUMIN 2.8 g/dL (3.5-5.0); CREATININE 2.5 mg/dL (0.5-1.5); MAGNESIUM 1.8 mg/dL (1.80-2.40); PHOSPHORUS 4.5 mg/dL (2.5-4.9); POTASSIUM 4.3 mmol/L (3.5-5.1); TOTAL PROTEIN, SERUM 6.3 g/dL (6.0-8.3); URIC ACID 6.7 mg/dL (2.6-7.2)
[2021-02-07] MEDS: LACTATED RINGERS 1000ML 1,000 ML IV SCH ×3 (04:11→21:36)
[2021-02-07] MEDS: HYDROMORPHONE 1 MG INJ IV PRN ×2 (04:17→09:36)
[2021-02-07] MEDS: LEVOTHYROXINE 75 MCG TABLET PO SCH (04:21)
[2021-02-07 04:36] LABS: BAND NEUTROPHILS % (MANUAL) 27 % (0-2); EOSINOPHILS % (MANUAL) 1 % (1-6); LYMPHOCYTES % (MANUAL) 4 % (22-44); MONOCYTES % (MANUAL) 4 % (2-9); SEGMENTED NEUTROPHILS % 64 % (40-70)
[2021-02-07 04:37] LABS: MAN.DIFF COMMENT-IMPRESSION MANUAL DIFFERENTIAL; PLATELET MORPHOLOGY COMMENT SLIGHTLY DECREASED
[2021-02-07] MEDS: LEVOFLOXACIN 750 MG/D5W 150 ML 150 ML IV SCH ×2 (05:06→19:33)
[2021-02-07] MEDS: INSULIN HUMULIN R 100 UNIT/ML 3ML SQ SCH ×4 (06:09→21:00)
[2021-02-07] MEDS: PANTOPRAZOLE 40 MG/VIAL IVP SCH (08:35)
[2021-02-07] MEDS: Vitamin B Complex/Vit C/Folic Acid PO SCH (08:35)
[2021-02-07] MEDS: MEROPENEM 500 MG VIAL IVP SCH ×2 (08:35→21:06)
[2021-02-07] MEDS: TAMSULOSIN HCL 0.4 MG CAP.ER.24H PO SCH (08:35)
[2021-02-07] MEDS ORDERED: SERT-440 PO (10:15)
[2021-02-07] MEDS ORDERED: APIX5TAB PO (10:29)
[2021-02-07] MEDS ORDERED: LOVA20TA3 PO (10:29)
[2021-02-07] MEDS ORDERED: LEVO75TA10 PO (10:29)
[2021-02-07] MEDS ORDERED: METF750T46 PO (10:29)
[2021-02-07] MEDS ORDERED: METO25TA6 PO (10:29)
[2021-02-07] MEDS ORDERED: ARIP5TAB56 PO (10:29)
[2021-02-07] MEDS ORDERED: DRON400T7 PO (10:29)
[2021-02-07 10:43] LABS: WHITE BLOOD COUNT (AUTO) 33.6 K/uL (4.8-10.8)
[2021-02-07] MEDS ORDERED: METOPROLOL TARTRATE 1 MG/ML 5ML VIAL IV ONE (11:54)
[2021-02-07] MEDS ORDERED: METOPROLOL TARTRATE 1 MG/ML 5ML VIAL IV SCH (12:00)
[2021-02-07] MEDS ORDERED: DILTIAZEM 50MG VIAL IV ONE (16:14)
[2021-02-07] MEDS ORDERED: LIDOCAINE HCL 2% PF 20 ML JEL DISP.SYRIN MM ONE ×2 (16:40→16:49)
[2021-02-07] MEDS ORDERED: KETAMINE 50MG/ML SYRINGE 50 MG/ML DISP.SYRIN IV ONE (16:40)
[2021-02-07] MEDS ORDERED: MIDAZOLAM HCL 1 MG/ML 2ML VIAL ONE (16:46)
[2021-02-07] MEDS ORDERED: PROPOFOL 10 MG/ML 20ML VIAL IV ONE (16:47)
[2021-02-07] MEDS ORDERED: OPIUM/BELLADONNA ALKALOIDS 1 EACH SUPP.RECT RC ONE (17:02)
[2021-02-07] MEDS: METOPROLOL TARTRATE 1 MG/ML 5ML VIAL IV SCH ×2 (18:00→23:19)
[2021-02-07] MEDS ORDERED: DILTIAZEM 50MG VIAL IV PRN (18:30)
[2021-02-07] MEDS: DILTIAZEM 125MG+100 ML NS 125 ML IV PRN (19:37)
[2021-02-07 21:16] LABS: ABG BASE EXCESS -2.4 mmol/L (-2.0-3.0); ABG HCO3 21.2 mmol/L (21.0-28.0); ABG OXYGEN SATURATION 98.9 % (95.0-99.0); ABG PCO2 33 mmHg (35-48)
[2021-02-08] VITALS (23 sets, daily range): BP systolic 93–142; BP diastolic 46–76
[2021-02-08] MEDS ORDERED: 0.9%NACL 100ML 100 ML ONE (03:55)
[2021-02-08] MEDS: DILTIAZEM 125MG+100 ML NS 125 ML IV PRN (04:16)
[2021-02-08 04:51] LABS: HEMATOCRIT 34.4 % (42-54); MEAN CORPUSCULAR VOLUME 85.4 fL (79-99); RED BLOOD CELL COUNT(AUTO) 4.03 MIL/uL (4.50-6.20); RED CELL DISTRIBUTION WIDTH 15.1 % (11.0-15.5); WHITE BLOOD COUNT (AUTO) 23.8 K/uL (4.8-10.8)
[2021-02-08 05:14] LABS: ALBUMIN 2.3 g/dL (3.5-5.0); BILIRUBIN,TOTAL 0.7 mg/dL (0.2-1.0); CREATININE 1.7 mg/dL (0.5-1.5); MAGNESIUM 1.9 mg/dL (1.80-2.40); PHOSPHORUS 2.4 mg/dL (2.5-4.9); POTASSIUM 3.8 mmol/L (3.5-5.1); TOTAL PROTEIN, SERUM 5.4 g/dL (6.0-8.3)
[2021-02-08] MEDS: METOPROLOL TARTRATE 1 MG/ML 5ML VIAL IV SCH ×2 (05:29→12:00)
[2021-02-08] MEDS: LACTATED RINGERS 1000ML 1,000 ML IV SCH ×3 (05:36→22:16)
[2021-02-08] MEDS: LEVOTHYROXINE 75 MCG TABLET PO SCH (05:36)
[2021-02-08] MEDS: INSULIN HUMULIN R 100 UNIT/ML 3ML SQ SCH ×4 (05:42→19:57)
[2021-02-08] MEDS: TAMSULOSIN HCL 0.4 MG CAP.ER.24H PO SCH (09:16)
[2021-02-08] MEDS: PANTOPRAZOLE 40 MG/VIAL IVP SCH (09:16)
[2021-02-08] MEDS: MEROPENEM 500 MG VIAL IVP SCH (09:16)
[2021-02-08] MEDS: Vitamin B Complex/Vit C/Folic Acid PO SCH (09:16)
[2021-02-08] MEDS: CEFTRIAXONE 2GM VIAL IVP SCH (11:00)
[2021-02-08] MEDS: DRONEDARONE HYDROCHLORIDE 400 MG TABLET PO SCH ×2 (16:00→19:57)
[2021-02-08] MEDS: METOPROLOL TARTRATE 25 MG TAB PO SCH ×2 (16:00→19:57)
[2021-02-08] MEDS: APIXABAN 5 MG TABLET PO SCH (20:52)
[2021-02-08] MEDS ORDERED: METOPROLOL TARTRATE 25 MG TAB PO SCH (21:00)
[2021-02-08] MEDS ORDERED: DRONEDARONE HYDROCHLORIDE 400 MG TABLET PO SCH (21:00)
[2021-02-09] VITALS (24 sets, daily range): BP systolic 99–151; BP diastolic 55–95
[2021-02-09] MEDS: INSULIN HUMULIN R 100 UNIT/ML 3ML SQ SCH ×4 (05:25→20:49)
[2021-02-09 05:26] LABS: BASOPHILS % (AUTO) 0.4 % (0.0-5.0); EOSINOPHILS % (AUTO) 2.4 % (0.0-8.0); HEMATOCRIT 34.7 % (42-54); LYMPHOCYTES % (AUTO) 14.8 % (21.0-51.0); MEAN CORPUSCULAR HEMOGLOBIN 28.9 pg (27.0-33.0); MEAN CORPUSCULAR HGB CONC 32.9 g/dL (32.0-36.0); MEAN CORPUSCULAR VOLUME 88.1 fL (79-99); MONOCYTES % (AUTO) 4.3 % (3.0-13.0); NEUTROPHILS % (AUTO) 77.6 % (40.0-77.0); PLATELET COUNT (AUTO) 83 K/uL (130-400); RED BLOOD CELL COUNT(AUTO) 3.94 MIL/uL (4.50-6.20); WHITE BLOOD COUNT (AUTO) 15.7 K/uL (4.8-10.8)
[2021-02-09 05:41] LABS: ALBUMIN 2.3 g/dL (3.5-5.0); BILIRUBIN,TOTAL 0.7 mg/dL (0.2-1.0); CREATININE 1.3 mg/dL (0.5-1.5); MAGNESIUM 1.9 mg/dL (1.80-2.40); PHOSPHORUS 2.3 mg/dL (2.5-4.9); POTASSIUM 3.9 mmol/L (3.5-5.1); TOTAL PROTEIN, SERUM 5.4 g/dL (6.0-8.3)
[2021-02-09] MEDS: LACTATED RINGERS 1000ML 1,000 ML IV SCH (06:52)
[2021-02-09] MEDS: LEVOTHYROXINE 75 MCG TABLET PO SCH (06:52)
[2021-02-09] MEDS: ARIPIPRAZOLE 5 MG TABLET PO SCH (08:56)
[2021-02-09] MEDS: METOPROLOL TARTRATE 25 MG TAB PO SCH (08:56)
[2021-02-09] MEDS: DRONEDARONE HYDROCHLORIDE 400 MG TABLET PO SCH ×2 (08:56→20:47)
[2021-02-09] MEDS: TAMSULOSIN HCL 0.4 MG CAP.ER.24H PO SCH (08:56)
[2021-02-09] MEDS: Vitamin B Complex/Vit C/Folic Acid PO SCH (08:56)
[2021-02-09] MEDS: APIXABAN 5 MG TABLET PO SCH ×2 (08:56→20:48)
[2021-02-09] MEDS: CEFTRIAXONE 2GM VIAL IVP SCH (08:57)
[2021-02-09] MEDS: PANTOPRAZOLE 40 MG/VIAL IVP SCH (08:57)
[2021-02-09] MEDS: METOPROLOL SUCCINATE 50 MG TAB.SR.24H PO SCH ×2 (12:30→20:48)
[2021-02-09] MEDS: DILTIAZEM 60MG TAB PO SCH ×3 (16:30→23:28)
[2021-02-10] MEDS: DILTIAZEM 60MG TAB PO SCH ×3 (05:43→17:16)
[2021-02-10] MEDS: LEVOTHYROXINE 75 MCG TABLET PO SCH (05:44)
[2021-02-10] MEDS: INSULIN HUMULIN R 100 UNIT/ML 3ML SQ SCH ×4 (06:43→20:58)
[2021-02-10 08:01] VITALS: BP 131/85
[2021-02-10] MEDS: ARIPIPRAZOLE 5 MG TABLET PO SCH (08:38)
[2021-02-10] MEDS: PANTOPRAZOLE 40 MG/VIAL IVP SCH (08:38)
[2021-02-10] MEDS: TAMSULOSIN HCL 0.4 MG CAP.ER.24H PO SCH (08:38)
[2021-02-10] MEDS: Vitamin B Complex/Vit C/Folic Acid PO SCH (08:38)
[2021-02-10] MEDS: CEFTRIAXONE 2GM VIAL IVP SCH (08:38)
[2021-02-10] MEDS: DRONEDARONE HYDROCHLORIDE 400 MG TABLET PO SCH ×2 (08:38→20:59)
[2021-02-10] MEDS: APIXABAN 5 MG TABLET PO SCH ×2 (08:38→20:59)
[2021-02-10] MEDS: METOPROLOL SUCCINATE 50 MG TAB.SR.24H PO SCH (08:38)
[2021-02-10 09:30] VITALS: BP 137/66
[2021-02-10] MEDS ORDERED: MAGNESIUM CITRATE 296 ML SOLUTION PO SCH (12:00)
[2021-02-10 12:01] VITALS: BP 131/72
[2021-02-10 13:02] VITALS: BP 147/82
[2021-02-10 16:00] VITALS: BP 134/73
[2021-02-10] MEDS: METOPROLOL TARTRATE 25 MG TAB PO SCH (19:12)
[2021-02-10 21:05] VITALS: BP 117/56
[2021-02-11] VITALS: BP 117/56
[2021-02-11] MEDS: DILTIAZEM 60MG TAB PO SCH ×3 (00:14→13:25)
[2021-02-11] MEDS: METOPROLOL TARTRATE 25 MG TAB PO SCH ×3 (00:14→13:25)
[2021-02-11 00:48] VITALS: BP 117/62
[2021-02-11 03:54] LABS: MEAN CORPUSCULAR HEMOGLOBIN 28.7 pg (27.0-33.0); MEAN CORPUSCULAR HGB CONC 33.4 g/dL (32.0-36.0); RED BLOOD CELL COUNT(AUTO) 4.42 MIL/uL (4.50-6.20); RED CELL DISTRIBUTION WIDTH 14.5 % (11.0-15.5); WHITE BLOOD COUNT (AUTO) 9.5 K/uL (4.8-10.8)
[2021-02-11 04:05] LABS: CREATININE 1.2 mg/dL (0.5-1.5); MAGNESIUM 1.9 mg/dL (1.80-2.40); POTASSIUM 3.9 mmol/L (3.5-5.1)
[2021-02-11 04:50] VITALS: BP 122/74
[2021-02-11] MEDS: LEVOTHYROXINE 75 MCG TABLET PO SCH (06:07)
[2021-02-11 07:00] VITALS: BP 119/77
[2021-02-11] MEDS: INSULIN HUMULIN R 100 UNIT/ML 3ML SQ SCH ×3 (07:30→16:30)
[2021-02-11] MEDS: PANTOPRAZOLE 40 MG/VIAL IVP SCH (08:22)
[2021-02-11] MEDS: TAMSULOSIN HCL 0.4 MG CAP.ER.24H PO SCH (08:23)
[2021-02-11] MEDS: APIXABAN 5 MG TABLET PO SCH (08:23)
[2021-02-11] MEDS: DRONEDARONE HYDROCHLORIDE 400 MG TABLET PO SCH (08:23)
[2021-02-11] MEDS: ARIPIPRAZOLE 5 MG TABLET PO SCH (08:23)
[2021-02-11] MEDS: Vitamin B Complex/Vit C/Folic Acid PO SCH (08:23)
[2021-02-11] MEDS: CEFTRIAXONE 2GM VIAL IVP SCH (10:33)
[2021-02-11 11:00] VITALS: BP 121/58
[2021-02-11 16:00] VITALS: BP 104/68
== END 2021-02-11 18:44 | DRG 853 ==
LOC: EDH 23:18 → OBSVTOIN 02-06 02:01 → EDHIP 02-06 02:01 → INTOOBSV 02-06 02:01 → EDHIP 02-06 02:02 → 2CH 02-06 23:31 → 2DH 02-10 15:14
PROVIDERS: ADMIT Internal Medicine; ATTEND Internal Medicine
PROC: 0TNC8ZZ Release Bladder Neck, Via Natural or Artificial Opening Endoscopic (ICD-10-PCS; principal; 2021-02-07 16:39)
PROC: 5A0935A Assistance with Respiratory Ventilation, Less than 24 Consecutive Hours, High Flow/Velocity Cannula (ICD-10-PCS; 2021-02-08)
PROC: 5A0935A Assistance with Respiratory Ventilation, Less than 24 Consecutive Hours, High Flow/Velocity Cannula (ICD-10-PCS; 2021-02-09)
DX: A41.9 Sepsis, unspecified organism (principal); R65.21 Severe sepsis with septic shock; N17.9 Acute kidney failure, unspecified; E87.1 Hypo-osmolality and hyponatremia; I48.20 Chronic atrial fibrillation, unspecified; N13.6 Pyonephrosis; Z68.41 Body mass index [BMI] 40.0-44.9, adult; N18.9 Chronic kidney disease, unspecified; E11.22 Type 2 diabetes mellitus with diabetic chronic kidney disease; I12.9 Hypertensive chronic kidney disease with stage 1 through stage 4 chronic kidney disease, or unspecified chronic kidney disease; E78.5 Hyperlipidemia, unspecified; Z20.822 Contact with and (suspected) exposure to COVID-19; B96.89 Other specified bacterial agents as the cause of diseases classified elsewhere; D64.9 Anemia, unspecified; E03.9 Hypothyroidism, unspecified; E66.01 Morbid (severe) obesity due to excess calories; E78.00 Pure hypercholesterolemia, unspecified; F32.A Depression, unspecified; I25.10 Atherosclerotic heart disease of native coronary artery without angina pectoris; K21.9 Gastro-esophageal reflux disease without esophagitis; N32.0 Bladder-neck obstruction; N40.1 Benign prostatic hyperplasia with lower urinary tract symptoms; R33.8 Other retention of urine; Z74.01 Bed confinement status; Z79.01 Long term (current) use of anticoagulants; Z79.899 Other long term (current) drug therapy; Z86.19 Personal history of other infectious and parasitic diseases; Z85.46 Personal history of malignant neoplasm of prostate; Z83.3 Family history of diabetes mellitus; Z82.5 Family history of asthma and other chronic lower respiratory diseases; Z82.49 Family history of ischemic heart disease and other diseases of the circulatory system; Z82.3 Family history of stroke; Z82.0 Family history of epilepsy and other diseases of the nervous system
CPT/HCPCS: 36415; 36600; 71045; 74176; 76770; 80048; 80053; 81001; 82435; 82550; 82803; 82947; 82948; 83605; 83735; 83874; 83880; 84100; 84132; 84145; 84295; 84484; 84550; 85018; 85025; 85027; 85610; 85730; 87040; 87077; 87088; 87186; 87635; 87804; 93005; 93306; 97039; A4344; A4354; C1758; C9113; G0378; J0696; J1170; J1956; J2060; J2185; J2250; J2405; J2704; J3490; J7030; J7120; Q9963

== ENCOUNTER 2021-02-16 11:20 | Observation (INO) | payer MEDICARE ==
[~2021-02-16] VITALS: Ht 175.3 cm; Wt 116.1 kg
[~2021-02-16 11:20] MED LIST changes: +APIX5TAB PO; +ARIP5TAB56 PO; +SERT-440 PO
[2021-02-16 12:08] LABS: APPEARANCE,URINE CLOUDY (CLEAR); BILIRUBIN,URINE MODERATE (NEGATIVE); COLOR,URINE RED (YELLOW); GLUCOSE, URINE (UA) 100 mg/dL (NEGATIVE); KETONES,URINE 15 mg/dL (NEGATIVE); LEUKOCYTE ESTERASE ,URINE MODERATE (NEGATIVE); NITRATE,URINE POSITIVE (NEGATIVE); OCCULT BLOOD,URINE LARGE (NEGATIVE); PH,URINE 6.5 (5.0-8.0); PROTEIN,URINE 100 mg/dL (NEGATIVE)
[2021-02-16 12:45] LABS: BASOPHILS % (AUTO) 0.3 % (0.0-5.0); EOSINOPHILS % (AUTO) 0.7 % (0.0-8.0); HEMATOCRIT 36.8 % (42-54); MEAN CORPUSCULAR HEMOGLOBIN 28.9 pg (27.0-33.0); MEAN CORPUSCULAR HGB CONC 33.4 g/dL (32.0-36.0); MEAN CORPUSCULAR VOLUME 86.6 fL (79-99); MONOCYTES % (AUTO) 8.5 % (3.0-13.0); NEUTROPHILS % (AUTO) 73.7 % (40.0-77.0); PLATELET COUNT (AUTO) 251 K/uL (130-400); RED BLOOD CELL COUNT(AUTO) 4.25 MIL/uL (4.50-6.20); RED CELL DISTRIBUTION WIDTH 14.2 % (11.0-15.5); WHITE BLOOD COUNT (AUTO) 10.9 K/uL (4.8-10.8)
[2021-02-16 12:53] LABS: RBC,URINE TNTC /HPF (0-1)
[2021-02-16 12:54] LABS: CREATININE 1.1 mg/dL (0.5-1.5); POTASSIUM 4.3 mmol/L (3.5-5.1)
[2021-02-16 12:55] LABS: BACTERIA,URINE Moderate /HPF (None Seen); SQUAMOUS EPITHELIAL CELL,UR None Seen /HPF (0-2)
[2021-02-16 12:58] LABS: BILIRUBIN,TOTAL 0.5 mg/dL (0.2-1.0); TOTAL PROTEIN, SERUM 6.9 g/dL (6.0-8.3)
[2021-02-16 13:23] LABS: INR 1.01 (0.85-1.15)
[2021-02-16 13:24] LABS: PARTIAL THROMBOPLASTIN TIME 30.5 SEC (26.3-35.5)
[2021-02-16] MEDS ORDERED: VANCOMYCIN KIT 1 GM/250 ML IV.KIT IV ONE (14:30)
[2021-02-16] MEDS ORDERED: CEFTRIAXONE 1G VIAL IVP ONE (15:00)
[2021-02-16] MEDS ORDERED: MEROPENEM 1 GM VIAL IVP SCH (15:30)
[2021-02-16] MEDS ORDERED: TEMAZEPAM 15 MG CAPSULE PO PRN (17:30)
[2021-02-16] MEDS ORDERED: ONDANSETRON 4MG INJ IVP PRN (17:30)
[2021-02-16] MEDS ORDERED: MORPHINE 2 MG SYG IVP PRN (17:30)
[2021-02-16] MEDS ORDERED: CLONIDINE HCL 0.1 MG TABLET PO PRN (17:30)
[2021-02-16] MEDS ORDERED: HYDRALAZINE 20MG/ML VIAL IV PRN (17:30)
[2021-02-16] MEDS ORDERED: ACETAMINOPHEN 650 MG SUPPOSITORY RC PRN (17:30)
[2021-02-16] MEDS: MEROPENEM 1 GM VIAL IVP SCH (18:15)
[2021-02-16 18:21] LABS: HEMATOCRIT 35.9 % (42-54)
[2021-02-16] MEDS: LACTATED RINGERS 1000ML 1,000 ML IV SCH (18:21)
[2021-02-16] MEDS: INSULIN HUMULIN R 100 UNIT/ML 3ML SQ SCH (21:00)
[2021-02-16] MEDS: LOVASTATIN 20 MG PO SCH (21:00)
[2021-02-16] MEDS: ACETAMINOPHEN 325 MG TAB PO PRN (21:48)
[2021-02-16] MEDS: METOPROLOL TARTRATE 25 MG TAB PO SCH (21:48)
[2021-02-16 23:03] LABS: HEMATOCRIT 35.6 % (42-54)
[2021-02-17] MEDS: LACTATED RINGERS 1000ML 1,000 ML IV SCH ×4 (01:46→22:49)
[2021-02-17] MEDS ORDERED: 0.9%NACL 100ML 100 ML ONE (02:05)
[2021-02-17] MEDS: MEROPENEM 1 GM VIAL IVP SCH ×3 (02:11→16:37)
[2021-02-17] MEDS: LEVOTHYROXINE 75 MCG TABLET PO SCH (06:22)
[2021-02-17] MEDS: INSULIN HUMULIN R 100 UNIT/ML 3ML SQ SCH ×4 (07:30→21:00)
[2021-02-17 08:03] LABS: BASOPHILS % (AUTO) 0.5 % (0.0-5.0); EOSINOPHILS % (AUTO) 2.8 % (0.0-8.0); HEMATOCRIT 36.5 % (42-54); LYMPHOCYTES % (AUTO) 26.4 % (21.0-51.0); MEAN CORPUSCULAR HEMOGLOBIN 28.9 pg (27.0-33.0); MEAN CORPUSCULAR HGB CONC 33.2 g/dL (32.0-36.0); MEAN CORPUSCULAR VOLUME 87.1 fL (79-99); MONOCYTES % (AUTO) 10.9 % (3.0-13.0); NEUTROPHILS % (AUTO) 58.5 % (40.0-77.0); PLATELET COUNT (AUTO) 247 K/uL (130-400); RED BLOOD CELL COUNT(AUTO) 4.19 MIL/uL (4.50-6.20); RED CELL DISTRIBUTION WIDTH 14.3 % (11.0-15.5); WHITE BLOOD COUNT (AUTO) 8.5 K/uL (4.8-10.8)
[2021-02-17 08:31] LABS: CREATININE 1.2 mg/dL (0.5-1.5); MAGNESIUM 2.1 mg/dL (1.80-2.40); PHOSPHORUS 3.6 mg/dL (2.5-4.9); POTASSIUM 4.3 mmol/L (3.5-5.1)
[2021-02-17] MEDS: PANTOPRAZOLE 40 MG TAB DR PO SCH (08:51)
[2021-02-17] MEDS: METOPROLOL TARTRATE 25 MG TAB PO SCH ×2 (08:51→22:48)
[2021-02-17] MEDS: SERTRALINE HCL 50 MG TABLET PO SCH (08:51)
[2021-02-17] MEDS: FERROUS SULFATE 325 MG TABLET.DR PO SCH (08:51)
[2021-02-17] MEDS: DRONEDARONE HYDROCHLORIDE 400 MG TABLET PO SCH ×2 (08:51→16:37)
[2021-02-17] MEDS: ARIPIPRAZOLE 5 MG TABLET PO SCH (08:51)
[2021-02-17] MEDS: METFORMIN HCL 750 MG PO SCH (08:53)
[2021-02-17] MEDS ORDERED: PHARMACY COMMUNICATION MISC SCH (11:30)
[2021-02-17] MEDS ORDERED: ALTEPLASE 2MG VIAL 2 MG/VIAL VIAL IVCATH SCH (12:30)
[2021-02-17 13:26] LABS: HEMATOCRIT 35.1 % (42-54)
[2021-02-17 14:15] VITALS: BP 124/47
[2021-02-17 16:00] VITALS: BP 130/44
[2021-02-17 19:39] VITALS: BP 136/55
[2021-02-17] MEDS: LOVASTATIN 20 MG PO SCH (21:00)
[2021-02-17] MEDS: BACITRACIN 28.4 GM OINT TP SCH (22:48)
[2021-02-17 23:00] VITALS: BP 128/70
[2021-02-18] MEDS: MEROPENEM 1 GM VIAL IVP SCH ×3 (00:25→18:13)
[2021-02-18 05:18] VITALS: BP 116/61
[2021-02-18] MEDS: LEVOTHYROXINE 75 MCG TABLET PO SCH (06:04)
[2021-02-18] MEDS: INSULIN HUMULIN R 100 UNIT/ML 3ML SQ SCH ×4 (07:26→20:32)
[2021-02-18 08:00] VITALS: BP 132/66
[2021-02-18 08:23] LABS: HEMATOCRIT 33.9 % (42-54); MEAN CORPUSCULAR HEMOGLOBIN 28.1 pg (27.0-33.0); MEAN CORPUSCULAR HGB CONC 32.4 g/dL (32.0-36.0); MEAN CORPUSCULAR VOLUME 86.7 fL (79-99); RED BLOOD CELL COUNT(AUTO) 3.91 MIL/uL (4.50-6.20); RED CELL DISTRIBUTION WIDTH 14.4 % (11.0-15.5); WHITE BLOOD COUNT (AUTO) 7.5 K/uL (4.8-10.8)
[2021-02-18 08:53] LABS: CREATININE 1.1 mg/dL (0.5-1.5); POTASSIUM 4.3 mmol/L (3.5-5.1)
[2021-02-18] MEDS: FERROUS SULFATE 325 MG TABLET.DR PO SCH (09:00)
[2021-02-18] MEDS: PANTOPRAZOLE 40 MG TAB DR PO SCH (09:00)
[2021-02-18] MEDS: SERTRALINE HCL 50 MG TABLET PO SCH (09:00)
[2021-02-18] MEDS: METFORMIN HCL 750 MG PO SCH (09:00)
[2021-02-18] MEDS: METOPROLOL TARTRATE 25 MG TAB PO SCH ×2 (09:00→20:29)
[2021-02-18 12:00] VITALS: BP 128/62
[2021-02-18] MEDS: ARIPIPRAZOLE 5 MG TABLET PO SCH (12:51)
[2021-02-18] MEDS: DRONEDARONE HYDROCHLORIDE 400 MG TABLET PO SCH ×2 (12:51→18:12)
[2021-02-18] MEDS: BACITRACIN 28.4 GM OINT TP SCH ×2 (15:29→20:32)
[2021-02-18 16:00] VITALS: BP 130/60
[2021-02-18] MEDS: ACETAMINOPHEN 325 MG TAB PO PRN (18:51)
[2021-02-18] MEDS: LACTATED RINGERS 1000ML 1,000 ML IV SCH (18:51)
[2021-02-18 20:00] VITALS: BP 131/60
[2021-02-18] MEDS: LOVASTATIN 20 MG PO SCH (20:49)
[2021-02-19] VITALS: BP 108/57
[2021-02-19] MEDS: MEROPENEM 1 GM VIAL IVP SCH ×3 (01:57→18:45)
[2021-02-19 04:00] VITALS: BP 130/58
[2021-02-19] MEDS: LEVOTHYROXINE 75 MCG TABLET PO SCH (06:25)
[2021-02-19] MEDS: INSULIN HUMULIN R 100 UNIT/ML 3ML SQ SCH ×4 (06:26→21:00)
[2021-02-19 08:00] VITALS: BP 143/74
[2021-02-19] MEDS: METFORMIN HCL 750 MG PO SCH (09:00)
[2021-02-19] MEDS: ACETAMINOPHEN 325 MG TAB PO PRN (09:49)
[2021-02-19] MEDS: DRONEDARONE HYDROCHLORIDE 400 MG TABLET PO SCH ×2 (09:52→18:45)
[2021-02-19] MEDS: SERTRALINE HCL 50 MG TABLET PO SCH (09:53)
[2021-02-19] MEDS: FERROUS SULFATE 325 MG TABLET.DR PO SCH (10:01)
[2021-02-19] MEDS: METOPROLOL TARTRATE 25 MG TAB PO SCH ×2 (10:02→19:59)
[2021-02-19] MEDS: PANTOPRAZOLE 40 MG TAB DR PO SCH (10:02)
[2021-02-19] MEDS: ARIPIPRAZOLE 5 MG TABLET PO SCH (10:02)
[2021-02-19] MEDS: BACITRACIN 28.4 GM OINT TP SCH ×2 (10:07→19:59)
[2021-02-19 11:58] VITALS: BP 126/77
[2021-02-19] MEDS ORDERED: KETOROLAC 30MG VIAL (30MG/ML) IM ONE (15:00)
[2021-02-19 16:00] VITALS: BP 131/51
[2021-02-19] MEDS: LOVASTATIN 20 MG PO SCH (19:59)
[2021-02-19 20:05] VITALS: BP 128/57
[2021-02-19] MEDS ORDERED: IBUPROFEN 600 MG TABLET PO PRN (23:00)
[2021-02-20 00:24] VITALS: BP 133/60
[2021-02-20] MEDS: MEROPENEM 1 GM VIAL IVP SCH ×3 (02:00→17:33)
[2021-02-20 04:24] VITALS: BP 124/57
[2021-02-20] MEDS: LEVOTHYROXINE 75 MCG TABLET PO SCH (06:04)
[2021-02-20] MEDS: INSULIN HUMULIN R 100 UNIT/ML 3ML SQ SCH ×3 (07:05→16:30)
[2021-02-20 08:00] VITALS: BP 121/50
[2021-02-20] MEDS: METFORMIN HCL 750 MG PO SCH (09:00)
[2021-02-20] MEDS: ARIPIPRAZOLE 5 MG TABLET PO SCH (09:36)
[2021-02-20] MEDS: FERROUS SULFATE 325 MG TABLET.DR PO SCH (09:36)
[2021-02-20] MEDS: PANTOPRAZOLE 40 MG TAB DR PO SCH (09:36)
[2021-02-20] MEDS: DRONEDARONE HYDROCHLORIDE 400 MG TABLET PO SCH ×2 (09:36→17:33)
[2021-02-20] MEDS: SERTRALINE HCL 50 MG TABLET PO SCH (09:37)
[2021-02-20] MEDS: BACITRACIN 28.4 GM OINT TP SCH (09:37)
[2021-02-20] MEDS: METOPROLOL TARTRATE 25 MG TAB PO SCH (09:37)
[2021-02-20 12:00] VITALS: BP 134/56
[2021-02-20 16:00] VITALS: BP 132/59
== END 2021-02-20 18:55 | disposition home or self-care (01) ==
LOC: EDH 11:50 → EDHIP 17:08 → 3AH 02-17 13:59
PROVIDERS: ADMIT Internal Medicine; ATTEND Internal Medicine
DX: T83.89XA Other specified complication of genitourinary prosthetic devices, implants and grafts, initial encounter (principal); R31.0 Gross hematuria; N39.0 Urinary tract infection, site not specified; E11.9 Type 2 diabetes mellitus without complications; I10 Essential (primary) hypertension; E78.5 Hyperlipidemia, unspecified; E03.9 Hypothyroidism, unspecified; K21.9 Gastro-esophageal reflux disease without esophagitis; D64.9 Anemia, unspecified; F32.A Depression, unspecified; E66.9 Obesity, unspecified; I48.91 Unspecified atrial fibrillation; E78.00 Pure hypercholesterolemia, unspecified; I74.8 Embolism and thrombosis of other arteries; R11.2 Nausea with vomiting, unspecified; Z79.899 Other long term (current) drug therapy; Z85.46 Personal history of malignant neoplasm of prostate; Z79.01 Long term (current) use of anticoagulants; Z79.890 Hormone replacement therapy; Z90.79 Acquired absence of other genital organ(s)
CPT/HCPCS: 36415 ×3; 74176; 80048 ×2; 80053; 81001; 82550 ×3; 82948 ×16; 83690; 83735; 83874 ×3; 84100; 84145; 84484 ×4; 85014 ×3; 85018 ×3; 85025 ×2; 85027; 85610; 85730; 87040 ×4; 87077; 87088; 87186; 96361 ×2; 96372; 96374; 96375 ×2; 96376 ×5; 97161; 99284; G0378 ×97; J1885; J2185 ×14; J2997; J7120 ×3

== ENCOUNTER 2021-09-02 06:44 | Day surgery (SDC) | payer MEDICARE ==
[2021-08-31 14:15] VITALS: BP 165/61
[2021-08-31 14:28] LABS: BASOPHILS % (AUTO) 0.4 % (0.0-5.0); EOSINOPHILS % (AUTO) 2.9 % (0.0-8.0); HEMATOCRIT 41.6 % (42-54); LYMPHOCYTES % (AUTO) 29.4 % (21.0-51.0); MEAN CORPUSCULAR HEMOGLOBIN 28.9 pg (27.0-33.0); MEAN CORPUSCULAR HGB CONC 33.7 g/dL (32.0-36.0); MEAN CORPUSCULAR VOLUME 85.8 fL (79-99); MONOCYTES % (AUTO) 10.5 % (3.0-13.0); NEUTROPHILS % (AUTO) 56.4 % (40.0-77.0); PLATELET COUNT (AUTO) 216 K/uL (130-400); RED BLOOD CELL COUNT(AUTO) 4.85 MIL/uL (4.50-6.20); RED CELL DISTRIBUTION WIDTH 13.5 % (11.0-15.5); WHITE BLOOD COUNT (AUTO) 11.3 K/uL (4.8-10.8)
[2021-08-31 14:36] LABS: CREATININE 1.3 mg/dL (0.5-1.5)
[~2021-09-02] VITALS: Ht 175.3 cm; Wt 131.2 kg
[2021-09-02] VITALS (18 sets, daily range): BP systolic 129–169; BP diastolic 57–67
[~2021-09-02 06:44] MED LIST changes: -METO25TA6 PO
[2021-09-02] MEDS ORDERED: 0.9%NACL 1000ML 1,000 ML IV ONE (07:29)
[2021-09-02] MEDS: CEFTRIAXONE 1G VIAL IVP ONE ×2 (07:54→10:00)
[2021-09-02] MEDS ORDERED: SUCCINYLCHOLINE 200MG/10ML SYR ONE (07:56)
[2021-09-02] MEDS ORDERED: DEXAMETHASONE SOD PHOSPHATE 10MG/ML 1ML VIAL ONE (07:56)
[2021-09-02] MEDS ORDERED: LIDOCAINE PF 100MG/5ML (2%) SYRINGE 5ML ONE (07:56)
[2021-09-02] MEDS ORDERED: ONDANSETRON 4MG INJ ONE (07:57)
[2021-09-02] MEDS ORDERED: MIDAZOLAM HCL 1 MG/ML 2ML VIAL ONE (07:57)
[2021-09-02] MEDS ORDERED: PROPOFOL 10 MG/ML 20ML VIAL IV ONE ×2 (07:59→10:17)
[2021-09-02] MEDS ORDERED: GLYCOPYRROLATE 1 MG/5 ML SYRINGE ONE (07:59)
[2021-09-02] MEDS ORDERED: NEOSTIGMINE 5MG/5ML SYR IV ONE (07:59)
[2021-09-02] MEDS ORDERED: ROCURONIUM 10MG/1ML SYR 10 MG/ML ML ONE (07:59)
[2021-09-02] MEDS ORDERED: FENTANYL CITRATE PF 50 MCG/1 ML 2ML VIAL ONE (08:00)
[2021-09-02] MEDS ORDERED: PHENAZOPYRIDINE HCL 200 MG TABLET ONE (12:03)
== END 2021-09-02 12:45 | disposition home or self-care (01) ==
LOC: DAH 06:44
PROVIDERS: ATTEND Urology
DX: N32.0 Bladder-neck obstruction (principal); N35.919 Unspecified urethral stricture, male, unspecified site; R35.1 Nocturia; R39.198 Other difficulties with micturition; I25.2 Old myocardial infarction; I10 Essential (primary) hypertension; I48.91 Unspecified atrial fibrillation; K21.9 Gastro-esophageal reflux disease without esophagitis; E11.9 Type 2 diabetes mellitus without complications; E66.9 Obesity, unspecified; E03.9 Hypothyroidism, unspecified; F32.A Depression, unspecified; Z79.84 Long term (current) use of oral hypoglycemic drugs; Z79.890 Hormone replacement therapy; Z98.890 Other specified postprocedural states; Z85.46 Personal history of malignant neoplasm of prostate; Z79.01 Long term (current) use of anticoagulants; Z79.899 Other long term (current) drug therapy
CPT/HCPCS: 36415; 52640; 80048; 82948 ×2; 85025; 87635; 93005; A4215; A4221; A4222; A4223; A4314; A4354; A4358 ×2; A4600; A4663; A5113; A6260; A6402; C9803; J0330; J0696; J1100; J2001; J2250; J2405; J2704 ×2; J2710; J3010; J3490; J7030 ×2